=== PATIENT | female | born 1935 | race Caucasian/White ===

== ENCOUNTER 2017-06-16 14:52 | Inpatient (IN) | payer MEDICARE, OTHER ==
[~2017-06-16] VITALS: Ht 154.9 cm; Wt 97.7 kg
[~2017-06-16 14:52] MED LIST: ANTIVERT 25MG25 MG PO; ASPIR-LOW81 MG PO; ASPIRIN 81M81 MG/TA2 PO; BENICAR HCT 12.1 TA1 PO; BUMEX1 MG PO; BYSTOLIC10 MG PO; CANA100T PO; DETROL LA4 PO; DIABETA 5MG5 MG/TAB PO; EXCEDRIN TENSION HA PO; FERROUS SU325 MG/TAB PO; FOLIC ACID PO; FORTAMET1000 MG PO; FORTAMET500 MG PO; GLUCOPHAGE1000 MG PO; GLYBURIDE MICRON3 MG PO; HCTZ 25MG25 MG PO; HYZAAR 12.5 MG-1 TAB PO; JANUMET 500 MG-1 TAB PO; KLOR-CON 1010 MEQ PO; LASIX 40MG TABL40 MG PO; METOPROLOL SUCC25 MG PO; MICARDIS80 MG PO; MOBIC15 MG PO; NEURONTIN300 MG/CAP PO; NORCO 325 MG-51 TAB PO; REGLAN 10MG10 MG/TAB PO; ROPINAROLE PO; TOPROL XL 25MG25 MG PO; TRAMADOL PO; TRAMADOL50 MG PO; TRAVATAN 2.5 M2.5 M1 OU; TYLENOL 325MG325 MG PO; ULTRAM100 MG PO; VITAMIN C500 MG PO; VITAMIN D1000 IU PO; [UNRECOGNIZED DRUG - REMARK]
[2017-06-16] MEDS ORDERED: TOPROL XL 50MG50 MG PO (15:06)
[2017-06-16] MEDS ORDERED: LIPITOR 40MG TA40 MG PO (15:07)
[2017-06-16] MEDS ORDERED: ACTOS 15MG TAB15 MG PO (15:07)
[2017-06-16 16:04] LABS: BASO # 0.1 (0.0-0.2); BASO % 0.9 % (0.0-2.0); EOS # 0.4 (0.0-0.7); EOS % 4.7 % (0-4.0); GRAN # 5.3 (1.4-6.5); GRAN % 71.7 % (42.2-75.2); HEMATOCRIT 36.8 % (37.0-47.0); HEMOGLOBIN 11.7 g/dl (12.5-16.0); MEAN CELL VOLUME 95 fl (80.0-100.0); MEAN CORPUSCULAR HEMOGLOBIN 30 pg (27.0-31.0); MEAN CORPUSCULAR HGB CONC 32 g/dl (33.0-37.0); MEAN PLATELET VOLUME 9.3 fl (7.4-10.4); MONO # 0.6 (0.1-0.6); MONO % 8.2 % (1.7-9.3); PLATELET COUNT 368 K/mm3 (130-400); RED BLOOD COUNT 3.86 M/mm3 (4.10-5.30); WHITE BLOOD COUNT 7.4 K/mm3 (4.8-10.8)
[2017-06-16 16:20] LABS: ADJUSTED CALCIUM 9.4 mg/dL (8.4-10.2); ALBUMIN 4.4 gm/dL (3.5-5.0); BILIRUBIN,TOTAL 0.6 mg/dL (0.0-1.0); CALCIUM 9.7 mg/dL (8.4-10.2); CREATININE, serum 0.66 mg/dL (0.52-1.25); POTASSIUM 4.3 mmol/L (3.4-5.0); TOTAL PROTEIN 7.7 gm/dL (6.4-8.2)
[2017-06-16 16:40] LABS: INR 1.1 (0.8-3.0); PROTHROMBIN TIME 12.6 SECONDS (9.7-12.8)
[2017-06-16 17:59] VITALS: BP 146/69; PULSE 97; TEMP 98
[2017-06-16 18:00] LABS: MUCOUS Present /lpf; PH 6 (5-8); SQUAMOUS EPITHELIAL None Seen /hpf; URINE APPEARANCE Clear; URINE BACTERIA None Seen /hpf; URINE BILIRUBIN Negative (NEGATIVE); URINE BLOOD Negative (NEGATIVE); URINE COLOR Yellow; URINE GLUCOSE Negative (NEGATIVE); URINE KETONE Negative (NEGATIVE); URINE LEUKOCYTE ESTERASE Negative (NEGATIVE); URINE PROTEIN(semi-quant) Negative (NEGATIVE); URINE UROBILINOGEN Negative (NEGATIVE); URINE WBC 0-2 /hpf
[2017-06-16 18:02] VITALS: BP 146/69; PULSE 97; TEMP 98
[2017-06-16 18:03] LABS: COLLECTION METHOD CLEAN CATCH
[2017-06-16 20:32] VITALS: BP 137/50; PULSE 90; TEMP 98
[2017-06-16 22:03] VITALS: BP 131/45; PULSE 72; TEMP 97.7
[2017-06-17 02:10] VITALS: BP 107/45; PULSE 67; TEMP 97.6
[2017-06-17 06:26] VITALS: BP 124/48; PULSE 68; TEMP 97.8
[2017-06-17 09:07] VITALS: BP 138/46; PULSE 78; TEMP 97.9
[2017-06-17 13:35] VITALS: BP 148/60; PULSE 79; TEMP 98.2
[2017-06-17 18:26] VITALS: BP 154/65; PULSE 78; TEMP 99.1
[2017-06-17 20:50] VITALS: BP 159/69; PULSE 82; TEMP 99.5
[2017-06-18] VITALS (16 sets, daily range): BP systolic 101–158; BP diastolic 35–66; PULSE 76–113; TEMP 97–98.5
[2017-06-18 07:10] LABS: BASO # 0.1 (0.0-0.2); BASO % 0.5 % (0.0-2.0); EOS # 0.2 (0.0-0.7); EOS % 2.2 % (0-4.0); GRAN # 7.9 (1.4-6.5); GRAN % 78.9 % (42.2-75.2); LYMPH # 0.8 (1.2-3.4); LYMPH % 8.3 % (20.0-51.0); MEAN CELL VOLUME 95 fl (80.0-100.0); MEAN CORPUSCULAR HGB CONC 32 g/dl (33.0-37.0); MEAN PLATELET VOLUME 9.5 fl (7.4-10.4); MONO % 9.7 % (1.7-9.3); PLATELET COUNT 337 K/mm3 (130-400); RED BLOOD COUNT 3.82 M/mm3 (4.10-5.30)
[2017-06-18 07:18] LABS: HEMATOCRIT 36.2 % (37.0-47.0); HEMOGLOBIN 11.7 g/dl (12.5-16.0); MEAN CORPUSCULAR HEMOGLOBIN 31 pg (27.0-31.0)
[2017-06-18 07:27] LABS: CALCIUM 9.7 mg/dL (8.4-10.2); CREATININE, serum 0.62 mg/dL (0.52-1.25); MAGNESIUM 1.6 mg/dL (1.6-2.3); POTASSIUM 3.9 mmol/L (3.4-5.0)
[2017-06-19 02:19] VITALS: BP 121/66; PULSE 100; TEMP 98.8
[2017-06-19 05:38] VITALS: BP 113/42; PULSE 96; TEMP 99.1
[2017-06-19 07:30] LABS: HEMATOCRIT 31.1 % (37.0-47.0); HEMOGLOBIN 10.4 g/dl (12.5-16.0)
[2017-06-19 09:37] VITALS: BP 106/40; PULSE 86; TEMP 98
[2017-06-19 13:54] VITALS: BP 122/44; PULSE 90; TEMP 98
[2017-06-19 16:12] VITALS: BP 112/41; PULSE 92; TEMP 99.1
[2017-06-19 22:00] VITALS: BP 119/42; PULSE 96; TEMP 98.8
[2017-06-20] VITALS (7 sets, daily range): BP systolic 107–145; BP diastolic 31–63; PULSE 76–103; TEMP 97.4–99
[2017-06-20 07:20] LABS: HEMATOCRIT 28.9 % (37.0-47.0); HEMOGLOBIN 9.7 g/dl (12.5-16.0)
[2017-06-20 07:24] LABS: CALCIUM 8.5 mg/dL (8.4-10.2); CREATININE, serum 0.7 mg/dL (0.52-1.25); POTASSIUM 3.6 mmol/L (3.4-5.0)
[2017-06-20 18:30] LABS: CALCIUM 8.8 mg/dL (8.4-10.2); CREATININE, serum 0.84 mg/dL (0.52-1.25); POTASSIUM 4.1 mmol/L (3.4-5.0)
[2017-06-21] VITALS (7 sets, daily range): BP systolic 106–141; BP diastolic 34–60; PULSE 80–102; TEMP 96.7–98.4
[2017-06-21 06:55] LABS: HEMATOCRIT 29.6 % (37.0-47.0); HEMOGLOBIN 9.7 g/dl (12.5-16.0)
[2017-06-21 07:04] LABS: CALCIUM 8.9 mg/dL (8.4-10.2); CREATININE, serum 0.71 mg/dL (0.52-1.25)
[2017-06-21 07:32] LABS: THYROID STIMULATING HORMONE 3.34 uIU/mL (0.465-4.680)
[2017-06-21 10:14] LABS: BASO # 0.1 (0.0-0.2); BASO % 0.5 % (0.0-2.0); EOS # 0.3 (0.0-0.7); EOS % 2.9 % (0-4.0); GRAN # 6.7 (1.4-6.5); GRAN % 73.5 % (42.2-75.2); HEMATOCRIT 29.9 % (37.0-47.0); HEMOGLOBIN 9.8 g/dl (12.5-16.0); LYMPH # 1.2 (1.2-3.4); LYMPH % 12.8 % (20.0-51.0); MEAN CELL VOLUME 94 fl (80.0-100.0); MEAN CORPUSCULAR HEMOGLOBIN 31 pg (27.0-31.0); MEAN CORPUSCULAR HGB CONC 33 g/dl (33.0-37.0); MEAN PLATELET VOLUME 9.6 fl (7.4-10.4); MONO # 0.9 (0.1-0.6); MONO % 9.8 % (1.7-9.3); PLATELET COUNT 353 K/mm3 (130-400); RED BLOOD COUNT 3.17 M/mm3 (4.10-5.30); WHITE BLOOD COUNT 9.1 K/mm3 (4.8-10.8)
[2017-06-22 01:31] VITALS: BP 125/44; PULSE 88; TEMP 98.7
[2017-06-22 05:27] VITALS: BP 127/48; PULSE 86; TEMP 98
[2017-06-22 06:50] LABS: BASO # 0.1 (0.0-0.2); BASO % 0.8 % (0.0-2.0); EOS # 0.3 (0.0-0.7); EOS % 4.1 % (0-4.0); GRAN # 5.8 (1.4-6.5); GRAN % 69.3 % (42.2-75.2); LYMPH # 1.1 (1.2-3.4); MEAN CELL VOLUME 95 fl (80.0-100.0); MEAN CORPUSCULAR HGB CONC 32 g/dl (33.0-37.0); MEAN PLATELET VOLUME 9.3 fl (7.4-10.4); MONO % 11.5 % (1.7-9.3); PLATELET COUNT 344 K/mm3 (130-400); RED BLOOD COUNT 3.03 M/mm3 (4.10-5.30); WHITE BLOOD COUNT 8.3 K/mm3 (4.8-10.8)
[2017-06-22 06:51] LABS: HEMATOCRIT 28.7 % (37.0-47.0); HEMOGLOBIN 9.2 g/dl (12.5-16.0); MEAN CORPUSCULAR HEMOGLOBIN 30 pg (27.0-31.0)
[2017-06-22 07:00] LABS: CALCIUM 8.6 mg/dL (8.4-10.2); CREATININE, serum 0.75 mg/dL (0.52-1.25); MAGNESIUM 2.1 mg/dL (1.6-2.3); POTASSIUM 4.2 mmol/L (3.4-5.0)
[2017-06-22] MEDS ORDERED: TYLENOL 325MG325 MG PO (08:10)
[2017-06-22] MEDS ORDERED: OYSCO 500500 M1 PO (08:10)
[2017-06-22] MEDS ORDERED: MULTI VITAMINS1 TAB PO (08:11)
[2017-06-22] MEDS ORDERED: VTAMINC250TA PO (08:11)
[2017-06-22] MEDS ORDERED: ANTIVERT 25MG25 MG PO (08:13)
[2017-06-22] MEDS ORDERED: NYSTATIN POWDER30 GM TOP (08:13)
[2017-06-22] MEDS ORDERED: SENOKOT S 50 MG1 TAB PO (08:14)
[2017-06-22] MEDS ORDERED: DULCOLAX S10 MG/SUPP RC (08:14)
[2017-06-22] MEDS ORDERED: GOOD NEIGH1200 MG/15 PO (08:14)
[2017-06-22] MEDS ORDERED: NORCO 325 MG-51 TAB PO (08:16)
[2017-06-22] MEDS ORDERED: COZAAR 25MG25 MG/TAB PO (08:25)
[2017-06-22] MEDS ORDERED: LASIX 20MG TABL20 MG PO (09:05)
[2017-06-22 10:16] VITALS: BP 144/66; PULSE 68; TEMP 98.7
[2017-06-22] MEDS ORDERED: XARELTO10 MG PO (10:18)
[2017-06-22 13:09] VITALS: BP 130/66; PULSE 92; TEMP 98.4
[2017-06-22 14:56] VITALS: BP 130/66; PULSE 92; TEMP 98.4
== END 2017-06-22 15:55 | DRG 467 ==
LOC: COL.ER 14:52 → SURG 16:26
PROVIDERS: Emergency Medicine; Internal Medicine; Internal Medicine Cardiovascular Disease; Orthopaedic Surgery; Physician Assistant
PROC: 0SPB09Z Removal of Liner from Left Hip Joint, Open Approach (ICD-10-PCS; 2017-06-18)
PROC: 0SUS09Z Supplement Left Hip Joint, Femoral Surface with Liner, Open Approach (ICD-10-PCS; 2017-06-18)
PROC: 0SRS0J9 Replacement of Left Hip Joint, Femoral Surface with Synthetic Substitute, Cemented, Open Approach (ICD-10-PCS; principal; 2017-06-18 08:00)
DX: S72.402A Unspecified fracture of lower end of left femur, initial encounter for closed fracture (principal); M97.02XA Periprosthetic fracture around internal prosthetic left hip joint, initial encounter; Z68.41 Body mass index [BMI] 40.0-44.9, adult; E87.1 Hypo-osmolality and hyponatremia; I50.32 Chronic diastolic (congestive) heart failure; B37.49 Other urogenital candidiasis; I11.0 Hypertensive heart disease with heart failure; W18.30XA Fall on same level, unspecified, initial encounter; E66.9 Obesity, unspecified; E11.42 Type 2 diabetes mellitus with diabetic polyneuropathy; I25.10 Atherosclerotic heart disease of native coronary artery without angina pectoris; Z95.5 Presence of coronary angioplasty implant and graft; Z87.891 Personal history of nicotine dependence; D50.0 Iron deficiency anemia secondary to blood loss (chronic); I44.1 Atrioventricular block, second degree
CPT/HCPCS: 99223-AI; 99232-AI; 99233-AI; 99239; A9284; C1713; C1776; J0171; J0690; J1815; J1885; J2250; J2270; J2704; J2765; J3010; J7040; J7120

== ENCOUNTER → 2017-07-09 | Outpatient (REF) ==
[~2017-07-09] MED LIST changes: +ACTOS 15MG TAB15 MG PO; +COZAAR 25MG25 MG/TAB PO; +DULCOLAX S10 MG/SUPP RC; +GOOD NEIGH1200 MG/15 PO; +LASIX 20MG TABL20 MG PO; +LIPITOR 40MG TA40 MG PO; +MULTI VITAMINS1 TAB PO; +NYSTATIN POWDER30 GM TOP; +OYSCO 500500 M1 PO; +SENOKOT S 50 MG1 TAB PO; +TOPROL XL 50MG50 MG PO; +VTAMINC250TA PO; +XARELTO10 MG PO
[2017-07-09 13:25] LABS: PH 6 (5-8); SQUAMOUS EPITHELIAL 0-2 /hpf; URINE APPEARANCE Clear; URINE BACTERIA None Seen /hpf; URINE BILIRUBIN Negative (NEGATIVE); URINE BLOOD Negative (NEGATIVE); URINE COLOR Straw; URINE GLUCOSE Negative (NEGATIVE); URINE KETONE Negative (NEGATIVE); URINE LEUKOCYTE ESTERASE Trace (NEGATIVE); URINE PROTEIN(semi-quant) Negative (NEGATIVE); URINE RBC 0-2 /hpf; URINE UROBILINOGEN Negative (NEGATIVE)
[2017-07-09 14:00] LABS: COLLECTION METHOD CLEAN CATCH
== END ==
LOC: ZCOL.LAB 13:10
PROVIDERS: Family Medicine
DX: R30.9 Painful micturition, unspecified (principal)

== ENCOUNTER 2017-10-13 09:00 | Outpatient (RCR) | payer MEDICARE, OTHER | END 2017-10-19 12:44 | disposition home or self-care (01) | LOC: WSPT 09:00 | DX: S72.002D Fracture of unspecified part of neck of left femur, subsequent encounter for closed fracture with routine healing (principal); Z96.642 Presence of left artificial hip joint; W19.XXXD Unspecified fall, subsequent encounter; T84.093D Other mechanical complication of internal left knee prosthesis, subsequent encounter | CPT/HCPCS: G8978-GP; G8979-GP; G8980-GP ==

== ENCOUNTER → 2018-01-08 | Outpatient (CLI) | payer MEDICARE, OTHER | LOC: SUN.DIA 13:01 | DX: E11.9 Type 2 diabetes mellitus without complications (principal); I10 Essential (primary) hypertension; E66.9 Obesity, unspecified; Z68.38 Body mass index [BMI] 38.0-38.9, adult; Z71.3 Dietary counseling and surveillance; Z87.891 Personal history of nicotine dependence | CPT/HCPCS: G0108 ==

== ENCOUNTER → 2018-01-30 | Outpatient (CLI) | payer MEDICARE, OTHER | LOC: SUN.DIA 09:41 | DX: E11.9 Type 2 diabetes mellitus without complications (principal); I10 Essential (primary) hypertension; E66.9 Obesity, unspecified; Z68.38 Body mass index [BMI] 38.0-38.9, adult; Z71.3 Dietary counseling and surveillance; Z87.891 Personal history of nicotine dependence | CPT/HCPCS: G0108 ==

== ENCOUNTER 2018-05-16 10:08 | Emergency (ER) | payer MEDICARE, OTHER ==
[2008-11-17 06:11] VITALS: BP 116/41
[~2018-05-16] VITALS: Ht 154.9 cm; Wt 90.9 kg
[2018-05-16 10:13] VITALS: TEMP 98
[2018-05-16 11:03] LABS: BASO # 0.1 (0.0-0.2); BASO % 0.7 % (0.0-2.0); EOS # 0.1 (0.0-0.7); EOS % 1.2 % (0-4.0); GRAN # 6.9 (1.4-6.5); LYMPH # 0.8 (1.2-3.4); LYMPH % 9.4 % (20.0-51.0); MEAN CELL VOLUME 92 fl (80.0-100.0); MEAN CORPUSCULAR HEMOGLOBIN 30 pg (27.0-31.0); MEAN CORPUSCULAR HGB CONC 33 g/dl (33.0-37.0); MEAN PLATELET VOLUME 9.2 fl (7.4-10.4); MONO # 0.6 (0.1-0.6); MONO % 7.1 % (1.7-9.3); PLATELET COUNT 424 K/mm3 (130-400); RED BLOOD COUNT 3.96 M/mm3 (4.10-5.30); REDCELL DISTRIBUTION WIDTH-CV 13.3 % (11.5-14.5)
[2018-05-16 11:04] LABS: INR 1.2 (0.8-3.0); PROTHROMBIN TIME 13.1 SECONDS (9.7-12.8)
[2018-05-16 11:06] LABS: HEMATOCRIT 36.6 % (37.0-47.0)
[2018-05-16 11:07] LABS: PARTIAL THROMBOPLASTIN TIME 31.9 SECONDS (26.0-37.0)
[2018-05-16 11:10] LABS: BILIRUBIN,TOTAL 0.4 mg/dL (0.0-1.0); CALCIUM 9.6 mg/dL (8.4-10.2); CREATININE, serum 0.62 mg/dL (0.52-1.25); POTASSIUM 4.4 mmol/L (3.4-5.0); TOTAL PROTEIN 7.2 gm/dL (6.4-8.2)
[2018-05-16 13:34] VITALS: BP 135/76; PULSE 88
== END 2018-05-16 13:27 | disposition home or self-care (01) ==
LOC: COL.ER 10:08
PROVIDERS: Emergency Medicine
DX: S00.93XA Contusion of unspecified part of head, initial encounter (principal); E11.9 Type 2 diabetes mellitus without complications; Z79.84 Long term (current) use of oral hypoglycemic drugs; W01.198A Fall on same level from slipping, tripping and stumbling with subsequent striking against other object, initial encounter; Y92.009 Unspecified place in unspecified non-institutional (private) residence as the place of occurrence of the external cause

== ENCOUNTER 2018-12-02 08:51 | Emergency (ER) | payer MEDICARE, OTHER ==
[2008-11-17 06:11] VITALS: BP 116/41
[~2018-12-02] VITALS: Ht 154.9 cm; Wt 90.9 kg
[2018-12-02 08:54] VITALS: TEMP 97.3
[2018-12-02] MEDS ORDERED: OSCAL 500 TAB500 MG PO (09:22)
[2018-12-02 09:38] LABS: BASO # 0.1 (0.0-0.2); BASO % 1.2 % (0.0-2.0); EOS # 0.2 (0.0-0.7); GRAN # 4.2 (1.4-6.5); GRAN % 73.6 % (42.2-75.2); HEMOGLOBIN 11.5 g/dl (12.5-16.0); LYMPH # 0.8 (1.2-3.4); LYMPH % 13.2 % (20.0-51.0); MEAN CELL VOLUME 94 fl (80.0-100.0); MEAN CORPUSCULAR HEMOGLOBIN 31 pg (27.0-31.0); MEAN CORPUSCULAR HGB CONC 33 g/dl (33.0-37.0); MONO # 0.5 (0.1-0.6); MONO % 8.3 % (1.7-9.3); PLATELET COUNT 385 K/mm3 (130-400); RED BLOOD COUNT 3.69 M/mm3 (4.10-5.30); REDCELL DISTRIBUTION WIDTH-CV 14.2 % (11.5-14.5)
[2018-12-02 09:39] LABS: HEMATOCRIT 34.7 % (37.0-47.0)
[2018-12-02 09:44] LABS: COLLECTION METHOD CLEAN CATCH
[2018-12-02 09:45] VITALS: BP 141/58; PULSE 80
[2018-12-02 09:48] LABS: ALBUMIN 4.4 gm/dL (3.5-5.0); BILIRUBIN,TOTAL 0.5 mg/dL (0.0-1.0); CALCIUM 9.9 mg/dL (8.4-10.2); CREATININE, serum 0.68 (0.52-1.25); POTASSIUM 4.6 mmol/L (3.4-5.0); TOTAL PROTEIN 7.6 gm/dL (6.4-8.2)
[2018-12-02 09:51] LABS: MUCOUS Present /lpf; PH 6 (5-8); SQUAMOUS EPITHELIAL None Seen /hpf; URINE APPEARANCE Clear; URINE BACTERIA None Seen /hpf; URINE BILIRUBIN Negative (NEGATIVE); URINE BLOOD Negative (NEGATIVE); URINE COLOR Straw; URINE GLUCOSE Negative (NEGATIVE); URINE KETONE Negative (NEGATIVE); URINE LEUKOCYTE ESTERASE Negative (NEGATIVE); URINE NITRATE Negative (NEGATIVE); URINE PROTEIN(semi-quant) Negative (NEGATIVE); URINE RBC 0-2 /hpf; URINE UROBILINOGEN Negative (NEGATIVE)
== END 2018-12-02 11:00 | disposition home or self-care (01) ==
LOC: COL.ER 08:51
PROVIDERS: Family Medicine
DX: S16.1XXA Strain of muscle, fascia and tendon at neck level, initial encounter (principal); I10 Essential (primary) hypertension; I25.10 Atherosclerotic heart disease of native coronary artery without angina pectoris; Z79.84 Long term (current) use of oral hypoglycemic drugs; W18.39XA Other fall on same level, initial encounter

== ENCOUNTER 2018-12-24 23:13 | Emergency (ER) | payer MEDICARE, OTHER ==
[2008-11-17 06:11] VITALS: BP 116/41
[~2018-12-24 23:13] MED LIST changes: +OSCAL 500 TAB500 MG PO
[2018-12-24 23:17] VITALS: TEMP 97.5
[2018-12-24] MEDS ORDERED: LOSARTAN/HCT TAB 100 (23:41)
[2018-12-24] MEDS ORDERED: DITROPAN 5MG TAB5 MG PO ×2 (23:41→23:50)
[2018-12-24] MEDS ORDERED: HYZAAR 12.5 MG-1 TAB PO (23:50)
[2018-12-24 23:59] LABS: BASO # 0.1 (0.0-0.2); BASO % 0.7 % (0.0-2.0); EOS # 0.2 (0.0-0.7); EOS % 1.9 % (0-4.0); GRAN # 6.1 (1.4-6.5); GRAN % 73.1 % (42.2-75.2); HEMATOCRIT 32.5 % (37.0-47.0); HEMOGLOBIN 10.8 g/dl (12.5-16.0); LYMPH # 1.2 (1.2-3.4); LYMPH % 14.1 % (20.0-51.0); MEAN CELL VOLUME 93 fl (80.0-100.0); MEAN CORPUSCULAR HEMOGLOBIN 31 pg (27.0-31.0); MEAN CORPUSCULAR HGB CONC 33 g/dl (33.0-37.0); MEAN PLATELET VOLUME 9.4 fl (7.4-10.4); MONO # 0.8 (0.1-0.6); MONO % 9.7 % (1.7-9.3); PLATELET COUNT 360 K/mm3 (130-400); RED BLOOD COUNT 3.48 M/mm3 (4.10-5.30); REDCELL DISTRIBUTION WIDTH-CV 13.8 % (11.5-14.5)
[2018-12-25 00:03] LABS: INR 1.2 (0.8-3.0); PROTHROMBIN TIME 13.7 SECONDS (9.7-12.8)
[2018-12-25 00:10] LABS: ALANINE AMINOTRANSFERASE 11 U/L (9-52); ALBUMIN 4.3 gm/dL (3.5-5.0); ALKALINE PHOSPHATASE 72 U/L (50-136); ANION GAP 13 mmol/L (7-16); AST,SGOT 24 U/L (15-37); BILIRUBIN,TOTAL 0.4 mg/dL (0.0-1.0); BLOOD UREA NITROGEN 22 mg/dL (7-17); CALCIUM 9.5 mg/dL (8.4-10.2); CARBON DIOXIDE 22 mmol/L (22-30); CHLORIDE 98 mmol/L (98-107); GLUCOSE 133 mg/dL (74-106); POTASSIUM 4.3 mmol/L (3.4-5.0); SODIUM 133 mmol/L (137-145); TOTAL PROTEIN 7.3 gm/dL (6.4-8.2)
[2018-12-25 00:16] LABS: COLLECTION METHOD CLEAN CATCH
[2018-12-25 00:21] LABS: TROPONIN-I < 0.012 ng/mL (0.000-0.035)
[2018-12-25 00:22] LABS: PH 6 (5-8); SQUAMOUS EPITHELIAL 0-2 /hpf; URINE APPEARANCE Clear; URINE BACTERIA Rare /hpf; URINE BILIRUBIN Negative (NEGATIVE); URINE BLOOD Negative (NEGATIVE); URINE COLOR Straw; URINE GLUCOSE Negative (NEGATIVE); URINE KETONE Negative (NEGATIVE); URINE LEUKOCYTE ESTERASE Trace (NEGATIVE); URINE NITRATE Negative (NEGATIVE); URINE PROTEIN(semi-quant) Negative (NEGATIVE); URINE RBC 0-2 /hpf; URINE UROBILINOGEN Negative (NEGATIVE)
[2018-12-25] MEDS ORDERED: CEPHALEXIN500 M1 PO (00:53)
[2018-12-25 01:19] VITALS: BP 140/62; PULSE 73
== END 2018-12-25 01:20 | disposition home or self-care (01) ==
LOC: COL.ER 23:13
PROVIDERS: Emergency Medicine
DX: S01.312A Laceration without foreign body of left ear, initial encounter (principal); I10 Essential (primary) hypertension; E78.5 Hyperlipidemia, unspecified; E11.40 Type 2 diabetes mellitus with diabetic neuropathy, unspecified; Z79.84 Long term (current) use of oral hypoglycemic drugs; W19.XXXA Unspecified fall, initial encounter; Y92.009 Unspecified place in unspecified non-institutional (private) residence as the place of occurrence of the external cause

== ENCOUNTER 2019-03-21 12:00 | Inpatient (IN) | payer MEDICARE ==
[~2019-03-21] VITALS: Ht 155 cm; Wt 82.0 kg
[~2019-03-21 12:00] MED LIST changes: +CEPHALEXIN500 M1 PO; +DITROPAN 5MG TAB5 MG PO; +LOSARTAN/HCT TAB 100
[2019-05-29] VITALS (11 sets, daily range): BP systolic 103–136; BP diastolic 39–85; PULSE 50–76; TEMP 97–98
--- NOTE | 2019-05-29 08:41 | NUR ---
PT TO SURGERY PER BED WITH LATASHA. IV STARTED BY [facility] TO LEFT HAND. IV FLUIDS RUNNING PER GRAVITY.
--- NOTE | 2019-05-29 12:00 | NUR ---
Initial visit; Patient and her thanked [employer] for looking in on her and offering God's blessings.
--- NOTE | 2019-05-29 12:28 | NUR ---
PT TO ROOM 327 PER BED WITH SATURNINO VICE PRESIDENT PROCESS @ 1200. PT IS DROWSEY BUT AROUSES TO VERBAL, LUNGS CLEAR, BOWEL SOUND PRESENT,PEDAL PULSES INTACT. POLAR PACK OVER AQUACEL TO RIGHT KNEE, TEDS AND SCDS BILATERALL. IV TO PUJP,
--- NOTE | 2019-05-29 14:38 | NUR ---
Ignition Mechanic met with the patient to complete initial intake and discuss discharge planning. Patient lives in [place] alone at the [facility]. Patient sees Dr. Tyler for primary care [facility] Patient states her daughter, Melissa (ph#[phone]) picks up her prescriptions for her. Patient states prior to surgery she was pretty independent with ADLS and has two walkers at home for use as needed. Patient states she has Advance Directives but copies are at home. Patient states she would like to go to [facility] for a skilled stay. SW provided Medicare.gov list of shelter facilities in her area. MINDA presented patient choice form. Patient understood options and selected [facility] as first choice. MINDA placed patient choice form in chart and faxed referral to [facility]. Patient states if she cannot go to [facility] she would like to explore Home Health services with [facility]. SW to continue to follow.
--- NOTE | 2019-05-29 18:51 | NUR ---
REPORTTO SHA LEON.
--- NOTE | 2019-05-29 20:00 | NUR ---
Report received. Assumed care for night monitor. A&Ox3-very drowsy. Assessment complete. Denies pain/nausea/shortness of breath. Tolerating diet. IV to Left hand infusing NS@125ml/hr. Will INT when tolerating more PO. States still doesnt have much feeling in toes up to mid thigh. States she couldnt feel at all earlier and now its starting to tingle. Aquacell dressing to right knee-dime size spot of drainage. SCDs/TEDs bilat. Cryocuff with fresh ice/water and on. Plan of care discussed for pain control and activity this shift once more feeling to extremity. Verbalizes understanding. Discussed ankle pumps. Call light in reach. Bed in low/wheels locked. Will monitor.
[2019-05-30] VITALS: BP 141/50; PULSE 76; TEMP 98
--- NOTE | 2019-05-30 03:30 | NUR ---
Up out of bed at this time. States she has more feeling in her right lower extremity. Sat on side of bed for approx 15 minutes. Tolerated well. Instructions given and stood at side of bed with walker/gait belt/2 assist. Tolerated well did take approx 5 steps using walker but stated she could not do anymore. Back to bed-right lower extremity repositioned with pillow support. Fresh ice to cryocuff. Denies nausea. Rating pain 3/10 to right knee described as ache that is worse with movement. Denies need for intervention. Encouraged to call for needs. Verbalizes understanding. TEDs/SCDs bilat. Call light in reach. Will monitor.
[2019-05-30 04:00] VITALS: BP 126/48; PULSE 56; TEMP 97.8
--- NOTE | 2019-05-30 06:45 | NUR ---
awake resting in bed, bedside shift report received from EDWARD Milian
[2019-05-30 06:52] LABS: HEMOGLOBIN 10.2 g/dl (12.5-16.0)
[2019-05-30 07:03] LABS: HEMATOCRIT 32.1 % (37.0-47.0)
--- NOTE | 2019-05-30 07:19 | NUR ---
repositioned up in bed to eat breakfast
[2019-05-30 07:37] VITALS: BP 118/38; PULSE 75; TEMP 97.7
--- NOTE | 2019-05-30 07:45 | NUR ---
sitting up in bed and has had breakfast and tolerated well, full assessment completed, see interventions for further info, denies needs for pain pills at this time
--- NOTE | 2019-05-30 08:50 | NUR ---
physical therapy in to work with patient and ambulates out to black, then back to room and into recliner
--- NOTE | 2019-05-30 09:31 | NUR ---
resting in chair, family in to visit
--- NOTE | 2019-05-30 09:40 | NUR ---
Rehab Rn was notified by Moon, Social Work Student at [facility] that referral has been accepted. SW to continue to follow.
--- NOTE | 2019-05-30 10:15 | NUR ---
therapist reports as they were walking by her room she was attempting to get out of recliner and go back to bed and was forgetful about who they were and that she couldn't get up independently, they assisted her back to bed and bed alarm on
--- NOTE | 2019-05-30 10:45 | NUR ---
appears to be sleeping, in bed with eyes closed, resp quiet and easy
--- NOTE | 2019-05-30 11:03 | NUR ---
Gum Machine Operator faxed updates to [facility]. SW will continue to follow to ensure safe discharge.
[2019-05-30 11:42] VITALS: BP 114/40; PULSE 66; TEMP 97.8
--- NOTE | 2019-05-30 11:52 | NUR ---
sitting up in bed eating lunch
--- NOTE | 2019-05-30 13:30 | NUR ---
ambulated out to black with physical therapy for group exercises
--- NOTE | 2019-05-30 14:15 | NUR ---
returned from physical therapy and remains resting in recliner, vaughan catheter discontinued and tolerated well, instructed to call when she needs to get up to bathroom and verbalizes understanding
[2019-05-30 15:48] VITALS: BP 126/43; PULSE 73; TEMP 97.4
--- NOTE | 2019-05-30 18:53 | NUR ---
bedside shift report given to Monisha Peña
--- NOTE | 2019-05-30 20:30 | NUR ---
Pt. sitting up in bed at this time. Pt. is A&Ox3, assessment complete. INT to lt. hand patent. Aquacell dressing to rt. knee. small amount of drainage noted. Pt. reports pain at a 2 on pain scale at this time. Pt. denies further needs, call light within reach.
[2019-05-31] VITALS: BP 126/50; PULSE 81; TEMP 97.8
[2019-05-31 03:41] VITALS: BP 155/53; PULSE 95; TEMP 98.2
[2019-05-31 07:37] VITALS: BP 140/46; PULSE 81; TEMP 98
[2019-05-31] MEDS ORDERED: NORCO 325 MG-7.1 TAB PO (13:43)
[2019-05-31] MEDS ORDERED: ASPI325T6 PO (13:43)
[2019-05-31] MEDS ORDERED: ULTRAM 50MG TAB50 MG PO (13:44)
[2019-05-31 15:39] VITALS: BP 124/47; PULSE 96; TEMP 97.4
--- NOTE | 2019-05-31 16:14 | NUR ---
Cook Enchilada met with patient to provide update that [facility] can accept tomorrow as patient is to discharge tomorrow. SW also provided update to patient's daughter, Melissa. SW to continue to follow as needed.
[2019-05-31 19:20] VITALS: BP 123/42; PULSE 103; TEMP 97.9
--- NOTE | 2019-05-31 20:44 | NUR ---
Patient doing well. Assessment completed with VSS. Ambulated in hallway with aide. Evenings meds given. No complaints at this time. Call light within reach, [place] continue to monitor
[2019-05-31 23:23] VITALS: BP 142/52; PULSE 107; TEMP 98.1
[2019-06-01 05:08] VITALS: BP 124/56; PULSE 92; TEMP 98.2
[2019-06-01 08:21] VITALS: BP 140/45; PULSE 99; TEMP 97.6
[2019-06-01 10:28] VITALS: BP 140/45; PULSE 99; TEMP 97.6
[2019-06-01 11:18] VITALS: BP 129/45; PULSE 96; TEMP 98.5
--- NOTE | 2019-06-01 11:19 | NUR ---
Patient's transfer arranged to [facility] for skilled care today via facility van at 12:00. Worker met with patient and advised of transfer and left message for daughter, Melissa. Orders were faxed to [facility].
--- NOTE | 2019-06-01 12:30 | NUR ---
Right knee pain relieved with prn pain meds. Ambulatory with walker and standby assist. Physical therapist worked with patient. Report called to nurse at halfway. Dismissed to [facility]/nellie chinchilla.
== END 2019-06-01 12:30 | DRG 470 ==
LOC: JCC 05-15 07:30
PROVIDERS: ADMIT Orthopaedic Surgery
PROC: 0SRC0J9 Replacement of Right Knee Joint with Synthetic Substitute, Cemented, Open Approach (ICD-10-PCS; principal; 2019-05-29 10:30)
DX: M17.11 Unilateral primary osteoarthritis, right knee (principal)
CPT/HCPCS: A4314; A9284; C1776; J0690; J1100; J2250; J2405; J2704; J3010; J7030

== ENCOUNTER 2019-08-02 10:00 | Outpatient (RCR) | payer MEDICARE, OTHER ==
[~2019-08-02 10:00] MED LIST changes: +ASPI325T6 PO; +NORCO 325 MG-7.1 TAB PO; +ULTRAM 50MG TAB50 MG PO
== END 2019-10-02 | disposition still patient (30) ==
LOC: WSPT
DX: Z96.651 Presence of right artificial knee joint (principal)

== ENCOUNTER → 2021-04-01 | Outpatient (CLI) | payer MEDICARE, OTHER ==
[~2021-04-01] MED LIST changes: +NYAMYC100000 U/G TP
[2021-04-01 12:59] LABS: BASO # 0.1 (0.0-0.2); EOS # 0.1 (0.0-0.7); EOS % 1.4 % (0-4.0); GRAN # 4.5 (1.4-6.5); GRAN % 72.8 % (42.2-75.2); HEMOGLOBIN 10.8 g/dl (12.5-16.0); LYMPH # 0.9 (1.2-3.4); LYMPH % 13.8 % (20.0-51.0); MEAN CELL VOLUME 95 fl (80.0-100.0); MEAN CORPUSCULAR HEMOGLOBIN 30 pg (27.0-31.0); MEAN CORPUSCULAR HGB CONC 32 g/dl (33.0-37.0); MEAN PLATELET VOLUME 9.7 fl (7.4-10.4); MONO # 0.7 (0.1-0.6); MONO % 10.5 % (1.7-9.3); PLATELET COUNT 421 K/mm3 (130-400); RED BLOOD COUNT 3.57 M/mm3 (4.10-5.30)
== END ==
LOC: ZCOL.LAB 12:39
PROVIDERS: Internal Medicine
DX: D64.9 Anemia, unspecified (principal); D51.9 Vitamin B12 deficiency anemia, unspecified

== ENCOUNTER 2021-04-02 17:27 | Emergency (ER) | payer MEDICARE, OTHER ==
[~2021-04-02] VITALS: Ht 154.9 cm; Wt 85.5 kg
[~2021-04-02 17:27] MED LIST changes: -NYAMYC100000 U/G TP
[2021-04-02 17:36] VITALS: TEMP 96.9
[2021-04-02 18:09] LABS: COLLECTION METHOD CLEAN CATCH
[2021-04-02 18:18] LABS: MUCOUS Present /lpf; PH 5 (5-8); SQUAMOUS EPITHELIAL 0-2 /hpf; URINE APPEARANCE Cloudy; URINE BACTERIA Many /hpf; URINE BILIRUBIN Negative (NEGATIVE); URINE BLOOD 1+ (NEGATIVE); URINE COLOR Yellow; URINE GLUCOSE Negative (NEGATIVE); URINE KETONE Negative (NEGATIVE); URINE LEUKOCYTE ESTERASE 3+ (NEGATIVE); URINE NITRATE Negative (NEGATIVE); URINE PROTEIN(semi-quant) Negative (NEGATIVE); URINE UROBILINOGEN Negative (NEGATIVE)
[2021-04-02 18:36] LABS: BASO # 0.1 (0.0-0.2); EOS # 0.1 (0.0-0.7); EOS % 1.9 % (0-4.0); GRAN # 4.4 (1.4-6.5); GRAN % 77.1 % (42.2-75.2); HEMOGLOBIN 11.1 g/dl (12.5-16.0); LYMPH # 0.6 (1.2-3.4); LYMPH % 10.1 % (20.0-51.0); MEAN CELL VOLUME 93 fl (80.0-100.0); MEAN CORPUSCULAR HEMOGLOBIN 30 pg (27.0-31.0); MEAN CORPUSCULAR HGB CONC 32 g/dl (33.0-37.0); MEAN PLATELET VOLUME 9.7 fl (7.4-10.4); MONO # 0.5 (0.1-0.6); MONO % 9.4 % (1.7-9.3); PLATELET COUNT 424 K/mm3 (130-400); RED BLOOD COUNT 3.69 M/mm3 (4.10-5.30); REDCELL DISTRIBUTION WIDTH-CV 14.1 % (11.5-14.5)
[2021-04-02 18:39] LABS: HEMATOCRIT 34.3 % (37.0-47.0)
[2021-04-02 19:03] LABS: ALBUMIN 4.4 gm/dL (3.5-5.0); BILIRUBIN,TOTAL 0.4 mg/dL (0.0-1.0); CALCIUM 9.6 mg/dL (8.4-10.2); CREATININE, serum 0.79 (0.52-1.25); POTASSIUM 4.7 mmol/L (3.4-5.0); TOTAL PROTEIN 7.6 gm/dL (6.4-8.2)
[2021-04-02] MEDS ORDERED: NYAMYC100000 U/G TP (21:08)
[2021-04-02] MEDS ORDERED: CEPHALEXIN500 M1 PO (21:08)
[2021-04-02 22:01] VITALS: BP 164/74; PULSE 74
== END 2021-04-02 22:01 | disposition home or self-care (01) ==
LOC: COL.ER 17:27
PROVIDERS: Emergency Medicine
DX: S62.633A Displaced fracture of distal phalanx of left middle finger, initial encounter for closed fracture (principal); S62.635A Displaced fracture of distal phalanx of left ring finger, initial encounter for closed fracture; N39.0 Urinary tract infection, site not specified; S00.83XA Contusion of other part of head, initial encounter; I10 Essential (primary) hypertension; Z79.899 Other long term (current) drug therapy; V00.181A Fall from other rolling-type pedestrian conveyance, initial encounter; Y92.009 Unspecified place in unspecified non-institutional (private) residence as the place of occurrence of the external cause
CPT/HCPCS: J0696; J7040